=== PATIENT | male | born 1995 | race Caucasian/White ===

== ENCOUNTER 2024-04-27 21:29 | Emergency (ER) | payer MEDICAID ==
[~2024-04-27] VITALS: Ht 185.4 cm; Wt 117.9 kg
[2024-04-27] MEDS: levETIRAcetam IV 500 MG in IV DEXTROSE 5% 100 ML IV ONE (22:39)
[2024-04-27] MEDS: LORAZEPAM 2 MG/1 ML VIAL IV ONE (22:39)
[2024-04-27] MEDS ORDERED: levETIRAcetam 500 MG/5 ML VIAL IV ONE (22:44)
[2024-04-27] MEDS ORDERED: LORAZEPAM 2 MG/1 ML VIAL ONE (22:46)
[2024-04-27 22:56] LABS: BASOPHILS % (AUTO) 0.6 % (0.0-2.0); EOSINOPHILS % (AUTO) 0.5 % (0.0-7.0); HEMATOCRIT 39.9 % (36.7-47.1); HEMOGLOBIN 13.5 g/dL (12.5-16.3); LYMPHOCYTES % (AUTO) 17.8 % (20.5-51.5); MEAN CORPUSCULAR HEMOGLOBIN 29.9 uug (23.8-33.4); MEAN CORPUSCULAR HGB CONC 34 g/dL (32.5-36.3); MEAN CORPUSCULAR VOLUME 88.3 fL (73.0-96.2); MONOCYTES # (AUTO) 0.5 K/uL (0.1-1.30); NEUTROPHILS # (AUTO) 4.1 K/uL (1.8-8.9); NEUTROPHILS % (AUTO) 73.1 % (38.5-71.5); PLATELET COUNT (AUTO) 234 K/uL (152-348); RED BLOOD CELL COUNT(AUTO) 4.52 MIL/uL (4.06-5.63); WHITE BLOOD COUNT (AUTO) 5.6 K/uL (3.6-10.2)
[2024-04-27 22:59] LABS: CALCIUM 8.7 mg/dL (8.5-10.1); CARBON DIOXIDE 26 mmol/L (21-32); CHLORIDE 103 mmol/L (98-107); CREATININE 1.1 mg/dL (0.6-1.3); GLUCOSE 95 mg/dL (74-106); POTASSIUM 3.5 mmol/L (3.5-5.1); SODIUM SERUM 139 mmol/L (136-145); UREA NITROGEN, BLOOD 8 mg/dL (7-18)
[2024-04-27 23:03] LABS: DIFFERENTIAL COMMENT 1
[2024-04-27 23:10] LABS: ETHANOL < 3 MG/DL (0-10)
[2024-04-27 23:11] LABS: ALANINE AMINOTRANSFERASE 22 U/L (16-63); ALBUMIN 3.7 g/dL (3.4-5.0); ALKALINE PHOSPHATASE 56 U/L (50-136); ASPARTATE AMINOTRANSFERASE 20 U/L (15-37); BILIRUBIN,DIRECT 0.2 mg/dL (0.0-0.2); BILIRUBIN,TOTAL 1.1 mg/dL (0.2-1.0); TOTAL PROTEIN, SERUM 6.5 g/dL (6.4-8.2)
[2024-04-27] MEDS ORDERED: LEVE500T9 PO (23:24)
[2024-04-27 23:25] LABS: *AMPHETAMINE, URINE NEGATIVE (NEGATIVE); *BARBITURATE, URINE NEGATIVE (NEGATIVE); *BENZODIAZEPINE, URINE NEGATIVE (NEGATIVE); *CANNABINOID, URINE POSITIVE (NEGATIVE); *COCCAINE, URINE NEGATIVE (NEGATIVE); *OPIATE, URINE NEGATIVE (NEGATIVE); *PHENCYCLIDINE SCREEN,URINE NEGATIVE (NEGATIVE); FENTANYL, URINE NEGATIVE (NEGATIVE)
[2024-04-28 02:04] VITALS: BP 106/60; TEMP 98; O2SAT 99
== END 2024-04-28 02:33 | disposition home or self-care (01) ==
LOC: ER 21:36
DX: R56.9 Unspecified convulsions (principal); Z79.899 Other long term (current) drug therapy; Z88.1 Allergy status to other antibiotic agents
CPT/HCPCS: 80076; 80048; 85025; 36415; 70450; 99285; 96365; 96375; 80320; 80307; J1953 ×2; J2060; A4606; A4663; G0480